=== PATIENT | female | born 1950 | race Asian ===

== ENCOUNTER 2016-11-24 23:27 | Emergency (ER) | payer BC, MEDICARE ==
[~2016-11-24 23:27] MED LIST: DARVOCET-N 1001 TAB PO; FISH OIL 1,0001 CA PO; MOTRIN800 MG PO; VITAMIN D
[2016-11-24] MEDS ORDERED: CEFDINIR300 M1 PO (23:47)
[2016-11-25 00:46] LABS: HCT-HEMATOCRIT 36.5 % (34.0-49.0); HGB-HEMOGLOBIN 12.6 gm/dl (12.0-15.5); IMMATURE GRANULOCYTES ABSOLUTE 0.01 tho/cmm (0-0.03); IMMATURE GRANULOCYTES PERCENT 0.2 % (0-0.3); LYMPH % 14.5 % (20-45); LYMPH ABSOLUTE COUNT 0.6 tho/cmm (0.8-4.5); MCH (MEAN CORPUSCULAR HGB) 30.2 pg (28.0-32.0); MCHC MEAN CORPUSCULAR HGB CONC 34.5 % (32.0-36.0); MCV (MEAN CELL VOLUME) 87.5 fl (82.0-96.0); MEAN PLATELET VOLUME 10.7 cmc (9.4-12.4); MONO % 3.1 % (0-12); MONOCYTE ABSOLUTE COUNT 0.1 tho/cmm (0.0-1.2); NEUTROPHIL ABSOLUTE COUNT 3.4 tho/cmm (1.6-8.0); NEUTROPHIL-AUTOMATED 3.4 tho/cmm (1.6-8.0); NEUTROPHILS % 82.2 % (40-80); PLATELET COUNT 138 tho/cmm (150-450); RED BLOOD COUNT 4.17 mil/cmm (4.00-5.20); RED CELL DISTRIBUTION WIDTH 12.5 % (12.4-16.4); WHITE BLOOD COUNT 4.2 tho/cmm (4.0-10.0)
[2016-11-25 00:57] LABS: ANION GAP 13 mmol/L (0-20); BLOOD UREA NITROGEN 12 mg/dl (6-24); CALCIUM 8.3 mg/dl (8.5-10.5); CARBON DIOXIDE-VENOUS 22 mmol/L (22-32); CHLORIDE 102 mmol/l (96-110); CREATININE 0.81 mg/dl (0.50-1.10); GLUCOSE 153 mg/dL (70-110); POTASSIUM 3.9 mmol/L (3.7-5.1); SODIUM 133 mmol/L (135-145); eGFR VALUE FOR BLACK 88 mL/Min
[2016-11-25 01:39] LABS: PROCALCITONIN 28.14 ng/ml (0.05-0.09)
== END 2016-11-25 01:40 ==
LOC: EDMED 23:27
PROVIDERS: Emergency Medicine
DX: B34.9 Viral infection, unspecified (principal)
CPT/HCPCS: J7030

== ENCOUNTER 2016-11-27 10:10 | Inpatient (IN) | payer BC, MEDICARE ==
[~2016-11-27 10:10] MED LIST changes: +CEFDINIR300 M1 PO
[2016-11-27 11:08] LABS: HCT-HEMATOCRIT 33.5 % (34.0-49.0); HGB-HEMOGLOBIN 11.8 gm/dl (12.0-15.5); IMMATURE GRANULOCYTES ABSOLUTE 0.03 tho/cmm (0-0.03); IMMATURE GRANULOCYTES PERCENT 0.5 % (0-0.3); LYMPH % 14.3 % (20-45); LYMPH ABSOLUTE COUNT 0.9 tho/cmm (0.8-4.5); MCH (MEAN CORPUSCULAR HGB) 30.3 pg (28.0-32.0); MCHC MEAN CORPUSCULAR HGB CONC 35.2 % (32.0-36.0); MCV (MEAN CELL VOLUME) 86.1 fl (82.0-96.0); MONO % 2.4 % (0-12); MONOCYTE ABSOLUTE COUNT 0.1 tho/cmm (0.0-1.2); NEUTROPHIL ABSOLUTE COUNT 4.9 tho/cmm (1.6-8.0); NEUTROPHIL-AUTOMATED 4.9 tho/cmm (1.6-8.0); NEUTROPHILS % 82.8 % (40-80); PLATELET COUNT 153 tho/cmm (150-450); RED BLOOD COUNT 3.89 mil/cmm (4.00-5.20); RED CELL DISTRIBUTION WIDTH 13.2 % (12.4-16.4); WHITE BLOOD COUNT 5.9 tho/cmm (4.0-10.0)
[2016-11-27 11:27] LABS: ALB/GLOB RATIO 0.6 (0.8-2.0); ALBUMIN 2.7 g/dl (3.5-5.0); ALKALINE PHOSPHATASE 73 U/L (33-138); ALT/SGPT 179 U/L (12-78); ANION GAP 16 mmol/L (0-20); AST/SGOT 368 U/L (10-40); BILIRUBIN,TOTAL 0.5 mg/dl (0-1.5); BLOOD UREA NITROGEN 12 mg/dl (6-24); CALCIUM 8.1 mg/dl (8.5-10.5); CARBON DIOXIDE-VENOUS 19 mmol/L (22-32); CHLORIDE 103 mmol/l (96-110); CREATININE 0.84 mg/dl (0.50-1.10); GLUCOSE 108 mg/dL (70-110); LIPASE 460 U/L (73-393); POTASSIUM 3.7 mmol/L (3.7-5.1); SODIUM 134 mmol/L (135-145); eGFR VALUE FOR BLACK 85 mL/Min
[2016-11-27 11:30] LABS: URINE APPEARANCE HAZY; URINE BILIRUBIN NEGATIVE (NEG); URINE BLOOD LARGE (NEG); URINE COLOR YELLOW; URINE GLUCOSE (UA) NEGATIVE (NEG); URINE KETONE LARGE (NEG); URINE LEUKOCYTE ESTERASE NEGATIVE (NEG); URINE NITRITE NEGATIVE (NEG); URINE PROTEIN MODERATE (NEG)
[2016-11-27 11:31] LABS: C-REACTIVE PROTEIN 25.9 mg/dl (0-0.9)
[2016-11-27 11:43] LABS: URINE MUCUS 3+
[2016-11-27 11:44] LABS: URINE RBC 20-30 /[HPF] (0-5)
[2016-11-27 11:57] LABS: PROCALCITONIN >200.00 ng/ml (0.05-0.09)
[2016-11-27 13:28] LABS: ABG CO2 ARTERIAL 15 mmol/L (21-27); ARTERIAL BLD GAS O2 SATURATION 94 % (95-98); ARTERIAL PO2 62 mmHg (70-100); BICARBONATE 14 mmol/L (21-28); BLOOD GAS BASE EXCESS -8 mM/L (-/+3); PH 7.47 Units (7.35-7.45)
[2016-11-27 13:31] LABS: ARTERIAL BLOOD GAS PCO2 19 mmHg (32-45)
[2016-11-27 14:33] LABS: ABG CO2 ARTERIAL 15 mmol/L (21-27); ARTERIAL BLD GAS O2 SATURATION 96 % (95-98); ARTERIAL PO2 75 mmHg (70-100); BICARBONATE 15 mmol/L (21-28); BLOOD GAS BASE EXCESS -7 mM/L (-/+3); PH 7.48 Units (7.35-7.45)
[2016-11-27 14:35] LABS: ARTERIAL BLOOD GAS PCO2 20 mmHg (32-45)
[2016-11-27 15:39] LABS: ALB/GLOB RATIO 0.6 (0.8-2.0); ALBUMIN 2.8 g/dl (3.5-5.0); ALKALINE PHOSPHATASE 77 U/L (33-138); ALT/SGPT 226 U/L (12-78); ANION GAP 19 mmol/L (0-20); AST/SGOT 459 U/L (10-40); BILIRUBIN,TOTAL 0.6 mg/dl (0-1.5); BLOOD UREA NITROGEN 12 mg/dl (6-24); CALCIUM 7.9 mg/dl (8.5-10.5); CARBON DIOXIDE-VENOUS 18 mmol/L (22-32); CHLORIDE 102 mmol/l (96-110); CREATININE 1.07 mg/dl (0.50-1.10); GLUCOSE 128 mg/dL (70-110); SODIUM 136 mmol/L (135-145); eGFR VALUE FOR BLACK 63 mL/Min
[2016-11-27 17:00] LABS: MAGNESIUM 1.4 mg/dl (1.8-2.6)
[2016-11-27 17:03] LABS: POTASSIUM 2.7 mmol/L (3.7-5.1)
[2016-11-27 20:12] LABS: INR 1.3 INR (0.9-1.1)
[2016-11-28 03:55] LABS: HCT-HEMATOCRIT 28.3 % (34.0-49.0); HGB-HEMOGLOBIN 9.9 gm/dl (12.0-15.5); MCH (MEAN CORPUSCULAR HGB) 29.8 pg (28.0-32.0); MCV (MEAN CELL VOLUME) 85.2 fl (82.0-96.0); MEAN PLATELET VOLUME 10.4 cmc (9.4-12.4); NEUTROPHIL-AUTOMATED 3.4 tho/cmm (1.6-8.0); PLATELET COUNT 124 tho/cmm (150-450); RED BLOOD COUNT 3.32 mil/cmm (4.00-5.20); RED CELL DISTRIBUTION WIDTH 13.5 % (12.4-16.4); WHITE BLOOD COUNT 4.1 tho/cmm (4.0-10.0)
[2016-11-28 04:09] LABS: ALB/GLOB RATIO 0.6 (0.8-2.0); ALBUMIN 2.6 g/dl (3.5-5.0); ALKALINE PHOSPHATASE 53 U/L (33-138); ALT/SGPT 197 U/L (12-78); AST/SGOT 310 U/L (10-40); BILIRUBIN,TOTAL 0.5 mg/dl (0-1.5); BLOOD UREA NITROGEN 12 mg/dl (6-24); CALCIUM 7.2 mg/dl (8.5-10.5); CARBON DIOXIDE-VENOUS 19 mmol/L (22-32); CHLORIDE 113 mmol/l (96-110); CREATININE 0.77 mg/dl (0.50-1.10); GLUCOSE 180 mg/dL (70-110); eGFR VALUE FOR BLACK >90 mL/Min
[2016-11-28 04:57] LABS: ANION GAP 18 mmol/L (0-20); POTASSIUM 3.7 mmol/L (3.7-5.1); SODIUM 146 mmol/L (135-145)
[2016-11-28 07:38] LABS: BAND % 31 % (0-20); BAND ABSOLUTE COUNT 1.3 tho/cmm (0-2.0); WBC MORPHOLOGY VACUOLES
[2016-11-29 04:32] LABS: BASO % 0.2 % (0-2); HCT-HEMATOCRIT 27.9 % (34.0-49.0); HGB-HEMOGLOBIN 9.9 gm/dl (12.0-15.5); IMMATURE GRANULOCYTES ABSOLUTE 0.03 tho/cmm (0-0.03); IMMATURE GRANULOCYTES PERCENT 0.5 % (0-0.3); LYMPH % 17.4 % (20-45); MCHC MEAN CORPUSCULAR HGB CONC 35.5 % (32.0-36.0); MCV (MEAN CELL VOLUME) 84.5 fl (82.0-96.0); MEAN PLATELET VOLUME 11.4 cmc (9.4-12.4); MONO % 7.9 % (0-12); MONOCYTE ABSOLUTE COUNT 0.5 tho/cmm (0.0-1.2); NEUTROPHIL ABSOLUTE COUNT 4.4 tho/cmm (1.6-8.0); NEUTROPHIL-AUTOMATED 4.4 tho/cmm (1.6-8.0); PLATELET COUNT 170 tho/cmm (150-450); RED CELL DISTRIBUTION WIDTH 13.8 % (12.4-16.4)
[2016-11-29 04:41] LABS: ANION GAP 15 mmol/L (0-20); BLOOD UREA NITROGEN 17 mg/dl (6-24); CALCIUM 8.2 mg/dl (8.5-10.5); CARBON DIOXIDE-VENOUS 20 mmol/L (22-32); CHLORIDE 117 mmol/l (96-110); CREATININE 0.69 mg/dl (0.50-1.10); GLUCOSE 177 mg/dL (70-110); POTASSIUM 4.1 mmol/L (3.7-5.1); SODIUM 148 mmol/L (135-145); eGFR VALUE FOR BLACK >90 mL/Min
[2016-11-30 06:06] LABS: BASO % 0.3 % (0-2); HCT-HEMATOCRIT 29.5 % (34.0-49.0); HGB-HEMOGLOBIN 10.3 gm/dl (12.0-15.5); IMMATURE GRANULOCYTES ABSOLUTE 0.11 tho/cmm (0-0.03); IMMATURE GRANULOCYTES PERCENT 1.5 % (0-0.3); LYMPH % 28.3 % (20-45); LYMPH ABSOLUTE COUNT 2.1 tho/cmm (0.8-4.5); MCH (MEAN CORPUSCULAR HGB) 29.9 pg (28.0-32.0); MCHC MEAN CORPUSCULAR HGB CONC 34.9 % (32.0-36.0); MCV (MEAN CELL VOLUME) 85.5 fl (82.0-96.0); MEAN PLATELET VOLUME 11.1 cmc (9.4-12.4); NEUTROPHIL ABSOLUTE COUNT 4.2 tho/cmm (1.6-8.0); NEUTROPHIL-AUTOMATED 4.2 tho/cmm (1.6-8.0); NEUTROPHILS % 56.9 % (40-80); PLATELET COUNT 221 tho/cmm (150-450); RED BLOOD COUNT 3.45 mil/cmm (4.00-5.20); RED CELL DISTRIBUTION WIDTH 14.1 % (12.4-16.4); WHITE BLOOD COUNT 7.3 tho/cmm (4.0-10.0)
[2016-11-30] MEDS ORDERED: LEVAQUIN750 M1 PO (12:39)
[2016-11-30] MEDS ORDERED: DELTASONE20 MG PO (12:40)
--- NOTE | 2016-11-30 13:23 | NUR ---
[facility] DISCHARGE NOTE-TAUGHT PATIENT AND SPOUSE REGARDING DISMISSAL INSTRUCTIONS, MEDS, AND THE FOLLOW UP APPTS AND TESTS. THEY DID TEACHBACK SUCCESSFULLY AND HAD NO FURTHER QUESTIONS OR CONCERNS AT THIS TIME
== END 2016-11-30 13:40 | DRG 871 ==
LOC: EDMED 10:10 → EMR2 13:44 → CCU 14:30 → 5WD 11-28 21:07
PROVIDERS: Emergency Medicine; Internal Medicine Critical Care Medicine; ADMIT Family Medicine
PROC: 02HV33Z Insertion of Infusion Device into Superior Vena Cava, Percutaneous Approach (ICD-10-PCS; principal; 2016-11-27)
DX: A41.9 Sepsis, unspecified organism (principal); J96.01 Acute respiratory failure with hypoxia; J18.9 Pneumonia, unspecified organism; K83.0 Cholangitis; B34.8 Other viral infections of unspecified site; E78.5 Hyperlipidemia, unspecified; R63.0 Anorexia; R74.0 Nonspecific elevation of levels of transaminase and lactic acid dehydrogenase [LDH]; R74.8 Abnormal levels of other serum enzymes; D64.9 Anemia, unspecified; R65.20 Severe sepsis without septic shock; E78.00 Pure hypercholesterolemia, unspecified; I10 Essential (primary) hypertension; Z88.8 Allergy status to other drugs, medicaments and biological substances
CPT/HCPCS: G0009; G0480; J1650; J1940; J1956; J2543; J2930; J3370; J7030; J7050; J7512; P9045; P9612; Q9967